=== PATIENT | female | born 1950 | race Caucasian/White ===

== ENCOUNTER → 2018-10-28 13:31 | Outpatient (CLI) | payer BC, SELFPAY ==
--- NOTE | 2018-10-28 | DI.CT.S_ITS ---
PROCEDURE: CT CHEST ABD PEL W CON INDICATIONS: Active smoker/routine screening/osteoporosis scree TECHNIQUE: After the administration of oral and intravenous contrast, 5 mm thick sections acquired from the lung apices to the symphysis. 5 mm coronal and sagittal reformats were performed, with additional 7 mm coronal MIP reformats through the lungs. For radiation dose reduction, the following was used: automated exposure control, adjustment of mA and/or kV according to patient size. COMPARISON: Former[facility], , THORACIC SPINE 2 VIEWS, 12/05/2011, 7:42. [facility], , CHEST 2 VIEW, 03/19/2017, 12:07. FINDINGS: Image quality: Excellent. CHEST: Lungs and pleura: No acute airspace opacities. No pleural effusions or pneumothorax. Central and peripheral airways appear patent and normal in caliber. Mediastinum: Heart size is normal. No pericardial effusion. No mediastinal or hilar adenopathy by size criteria. Thoracic aorta and central pulmonary arteries are normal in size. Esophagus is normal in caliber. No hiatal hernia. Chest wall: No axillary or supraclavicular adenopathy by size criteria. Thyroid gland appears normal where well seen. Note is made of a mid thoracic mild wedge compression fracture stable in appearance over time from plain film imaging that included the thoracic spine 12/05/11 ABDOMEN: Solid organs: Liver is normal in size and enhancement. Gallbladder appears normal. Biliary system is non dilated. Pancreas enhances normally. Spleen is normal in size and enhancement. No adrenal nodules. Kidneys demonstrate normal size and enhancement, without hydronephrosis. Peritoneum and bowel: Bowel loops demonstrate normal wall thickness and caliber. No free fluid or air. Nodes and vessels: No retroperitoneal or mesenteric adenopathy by size criteria. Aorta and inferior vena cava are normal in size. Miscellaneous: No ventral hernias. PELVIS: Genitourinary: Bladder wall thickness is normal. Miscellaneous: No inguinal hernias or adenopathy. Several surgical clips are noted at the right lower quadrant. Bones: No suspicious bony lesions. No vertebral body compression fractures. IMPRESSION: Through the lung parenchyma no mass lesion is seen. Note is made of a previously present midthoracic mild anterior wedge compression fracture also present in November 2011. Within the abdomen and pelvis no acute disease is found. Note is made of several clustered surgical clips in the right lower quadrant, possibly indicating prior appendectomy. Dictated by: Carlitos Rodriguez M.D. on 10/28/2018 at 15:57 Approved by: Carlitos Rodriguez M.D. on 10/28/2018 at 16:05
--- NOTE | 2018-10-28 | DI.MG.S_ITS ---
BILATERAL DIGITAL SCREENING MAMMOGRAM 3D/2D WITH CAD: 10/28/2018 CLINICAL: Routine screening. Family history of breast cancer. Comparison is made to exams dated: 03/25/2015 mammogram, 07/19/2013 mammogram, and 08/31/2011 mammogram - [facility]. There are scattered fibroglandular elements in both breasts. Current study was also evaluated with a Computer Aided Detection (CAD) system. No significant masses, calcifications, or other findings are seen in either breast. There has been no significant interval change. IMPRESSION: NEGATIVE There is no mammographic evidence of malignancy. A 1 year screening mammogram is recommended. This exam was interpreted at Station ID: [id number]. NOTE: For mammograms, a report in lay terms will be sent to the patient. Approximately 15% of breast malignancies will not be visualized mammographically. In the management of a palpable breast mass, a negative mammogram must not discourage biopsy of a clinically suspicious lesion. Electronically Signed By: Carolyn cardenas/rachel:10/28/2018 14:14:12 letter sent: Normal Exam ACR BI-RADS Category 1: Negative [id number]
[2018-10-28 14:00] LABS: BUN Creatinine Ratio 25.7 (6-22); Blood Urea Nitrogen 18 mg/dL (7-17); Calcium 9.7 mg/dL (8.4-10.2); Carbon Dioxide 25 mmol/L (22-32); Chloride 102 mmol/L (98-107); Estimated Glomerular Filt Rate > 60.0 mL/min (>60); Glucose 100 mg/dL (80-110); HEMOLYSIS < 15 (0-50); Potassium 3.8 mmol/L (3.4-5.1); Sodium 139 mmol/L (137-145)
== END ==
PROVIDERS: PCP Internal Medicine; Visit Provider Internal Medicine
DX: Z12.31 Encounter for screening mammogram for malignant neoplasm of breast (principal); Z13.820 Encounter for screening for osteoporosis; Z85.3 Personal history of malignant neoplasm of breast; M81.0 Age-related osteoporosis without current pathological fracture; Z78.0 Asymptomatic menopausal state; I10 Essential (primary) hypertension; E78.49 Other hyperlipidemia; F17.200 Nicotine dependence, unspecified, uncomplicated
CPT/HCPCS: 36415; 71260; 74177; 77063; 77067; 77080; 80048; 82565; 84520; Q9967

== ENCOUNTER → 2018-12-12 14:52 | Oncology outpatient (ONC) | payer BC, SELFPAY ==
[2018-12-12] MEDS: ZOLEDRONIC ACID 5 MG in SODIUM CHLORIDE 0.9% 100 ML 318.75 ML IV (15:19)
[2018-12-12 15:20] VITALS: BP 179/77; PULSE 70; RESP 16; TEMP 37.1; O2SAT 98
== END ==
LOC: ONC 14:55
PROVIDERS: PCP Internal Medicine; Visit Provider Internal Medicine
DX: M81.0 Age-related osteoporosis without current pathological fracture (principal)
CPT/HCPCS: 36000; 96365; J3489

== ENCOUNTER → 2019-06-07 08:04 | Outpatient (CLI) | payer BC, SELFPAY ==
[2019-06-07 08:49] LABS: Add Manual Diff / Slide Review NO; Basophils Absolute Auto 100 /uL (0-100); Basophils Percent Auto 0.9 % (0-2); Eosinophils Absolute Auto 100 /uL (0-450); Eosinophils Percent Auto 0.8 % (2-4); Hematocrit 45.6 % (36-46); Hemoglobin 16.2 g/dL (12.0-16.0); Lymphocytes Absolute Auto 2300 /uL (1100-4500); Lymphocytes Percent Auto 20.4 % (25-40); Mean Corpuscular HGB Conc 35.6 % (30-36); Mean Corpuscular Hemoglobin 34.5 PG (26-34); Mean Corpuscular Volume 96.8 fL (80-100); Monocytes Absolute Auto 800 /uL (0-900); Monocytes Percent Auto 6.8 % (3-14); Neutrophils Absolute Auto 8100 /uL (1500-7000); Neutrophils Percent Auto 71.1 % (50-75); Platelet Count 313 X10^3/uL (150-400); Red Blood Cell Count 4.71 X10^6/uL (4.0-5.2); Red Cell Distribution Width 12.7 % (11.6-14.8); White Blood Cell Count 11.5 X10^3/uL (4.5-11.0)
[2019-06-07 08:55] LABS: Prothrombin Time 11.3 SECONDS (10.1-12.7)
[2019-06-07 08:58] LABS: PTT Partial Thromboplastin Tim 38 SECONDS (26.4-36.2)
[2019-06-07 09:02] LABS: Alanine Aminotransferase 22 IU/L (<35); Albumin 4.9 g/dL (3.5-5.0); Albumin Globulin Ratio 1.3 (1.0-2.8); Alkaline Phosphatase 116 U/L (38-126); Aspartate Aminotransferase 33 IU/L (14-36); BUN Creatinine Ratio 19.4 (6-22); Blood Urea Nitrogen 12 mg/dL (7-17); C-Reactive Protein Quant 1.1 mg/dL (<1.0); Carbon Dioxide 25 mmol/L (22-32); Chloride 101 mmol/L (98-107); Estimated Glomerular Filt Rate > 60.0 mL/min (>60); Globulin 3.8 g/dL (1.7-4.1); Glucose 119 mg/dL (80-110); HEMOLYSIS < 15 (0-50); Lactate Dehydrogenase 423 U/L (313-618); Potassium 4.4 mmol/L (3.4-5.1); Sodium 138 mmol/L (137-145); Total Protein 8.7 g/dL (6.3-8.2)
[2019-06-07 09:10] LABS: Erythrocyte Sedimentation Rate 27 MM/HR (0-20)
[2019-06-07 09:30] LABS: Thyroid Stimulating Hormone 1.46 uIU/mL (0.47-4.68)
== END ==
PROVIDERS: PCP Internal Medicine; Referring Provider Internal Medicine; Visit Provider Internal Medicine
DX: I10 Essential (primary) hypertension (principal); L29.9 Pruritus, unspecified; T14.8XXA Other injury of unspecified body region, initial encounter
CPT/HCPCS: 36415; 80053; 83615; 84443; 85025; 85610; 85651; 85730; 86140

== ENCOUNTER → 2019-06-29 07:27 | Outpatient (CLI) | payer BC, SELFPAY ==
[2019-06-29 07:46] LABS: Bacteria Urine None Seen; RBC Urine None Seen (0-5/HPF); WBC Urine None Seen (0-5/HPF)
[2019-06-29 08:11] LABS: Appearance Urine UA CLEAR; Bilirubin Urine UA NEGATIVE (NEGATIVE); Color Urine UA YELLOW; Glucose Urine UA NEGATIVE (Negative); Ketones Urine UA NEGATIVE (NEGATIVE); Leukocyte Esterase Urine UA NEGATIVE (NEGATIVE); Nitrite Urine UA NEGATIVE (Negative); Occult Blood Urine UA TRACE-INTACT (Negative); Protein Urine UA NEGATIVE (Negative); Specific Gravity Urine UA <=1.005 (1.000-1.035); Urobilinogen Urine UA 0.2 E.U./dL (0.2)
[2019-06-29 08:20] LABS: Add Manual Diff / Slide Review NO; Basophils Absolute Auto 0 /uL (0-100); Basophils Percent Auto 0.5 % (0-2); Eosinophils Absolute Auto 100 /uL (0-450); Eosinophils Percent Auto 0.8 % (2-4); Hemoglobin 15.7 g/dL (12.0-16.0); Lymphocytes Absolute Auto 2700 /uL (1100-4500); Lymphocytes Percent Auto 30.2 % (25-40); Mean Corpuscular HGB Conc 35.7 % (30-36); Mean Corpuscular Hemoglobin 34.5 PG (26-34); Mean Corpuscular Volume 96.6 fL (80-100); Monocytes Absolute Auto 800 /uL (0-900); Neutrophils Absolute Auto 5200 /uL (1500-7000); Neutrophils Percent Auto 59.5 % (50-75); Platelet Count 309 X10^3/uL (150-400); Red Blood Cell Count 4.55 X10^6/uL (4.0-5.2); Red Cell Distribution Width 12.7 % (11.6-14.8); White Blood Cell Count 8.8 X10^3/uL (4.5-11.0)
[2019-06-29 08:21] LABS: Culture Indicated Urine Cult Not Indicated; Urine Comments Microscopic Normal; pH Urine UA 7.5 (4.5-8.0)
[2019-06-29 08:25] LABS: Prothrombin Time 11.6 SECONDS (10.1-12.7)
[2019-06-29 08:27] LABS: Hemoglobin A1C% w Est Avg Glu 5.4 % (4.0-6.0)
[2019-06-29 08:28] LABS: PTT Partial Thromboplastin Tim 37 SECONDS (26.4-36.2)
[2019-06-29 09:10] LABS: Fibrinogen 432 mg/dL (211-428)
[2019-06-29 16:37] LABS: HIV 1 & 2 Ab/Ag 4th Gen Combo NEGATIVE (NEGATIVE); Hep C Virus Ab w/Reflex Quant NEGATIVE s/c (NEGATIVE); Hepatitis B Surface Antigen NEGATIVE s/c (NEGATIVE)
[2019-06-29 23:56] LABS: Hepatitis B Core Antibody Negative (Negative)
[2019-06-30 03:08] LABS: Hepatitis B Surf Ab Qualitativ Non Reactive (.)
[2019-07-04 13:36] LABS: Immunoglobulin A, Serum 376 mg/dL (87-352); Immunoglobulin G,Serum 928 mg/dL (586-1602); Immunoglobulin M, Serum 252 mg/dL (26-217)
[2019-07-04 17:04] LABS: Albumin 3.7 g/dL (2.9-4.4); Alpha-1-Globulin 0.3 g/dL (0.0-0.4); Alpha-2-Globulin 0.9 g/dL (0.4-1.0); Gamma Globulin 1.2 g/dL (0.4-1.8); Globulin Total 3.6 g/dL (2.2-3.9); Protein, Total 7.3 g/dL (6.0-8.5)
== END ==
PROVIDERS: PCP Internal Medicine; Referring Provider Internal Medicine; Visit Provider Internal Medicine
DX: E88.09 Other disorders of plasma-protein metabolism, not elsewhere classified (principal); R79.1 Abnormal coagulation profile; D72.829 Elevated white blood cell count, unspecified
CPT/HCPCS: 36415; 81001; 82784; 83036; 84155; 84165; 85025; 85384; 85610; 85670; 85730; 86334; 86704; 86706; 86803; 87340; 87389

== ENCOUNTER → 2019-07-18 06:54 | Outpatient (CLI) | payer BC, SELFPAY ==
[2019-07-19 12:08] LABS: SARS CoV19 IgG Negative (Negative)
== END ==
PROVIDERS: PCP Internal Medicine; Referring Provider Internal Medicine; Visit Provider Internal Medicine
DX: Z71.89 Other specified counseling (principal)
CPT/HCPCS: 36415; 86769

== ENCOUNTER → 2019-09-14 16:18 | Outpatient (CLI) | payer BC, SELFPAY ==
--- NOTE | 2019-09-14 16:20 | DI.RAD.S_ITS ---
PROCEDURE: XR CHEST 2V INDICATIONS: cough TECHNIQUE: 2 views of the chest were acquired. COMPARISON: [facility], CT, CT CHEST ABD PEL W CON, 10/28/2018, 15:14. [facility], CR, CHEST 2 VIEW, 03/19/2017, 12:07. FINDINGS: Surgical changes and devices: None. Lungs and pleura: Lungs are abnormal within interstitial prominence and also with mild asymmetric elevation of the left hemidiaphragm not previously present on comparison study from March 2017. Note is made of prominent mediastinal and left hilar adenopathy causing presence of a lobulated masslike structure superimposed on the left mediastinum, measuring up to 6.7 cm in diameter. No right-sided adenopathy is seen.. No pleural effusions or pneumothorax. Mediastinum: Mediastinal contours are normal. Heart size is normal. Bones and chest wall: No suspicious bony abnormalities. Soft tissues appear unremarkable. IMPRESSION: Malignant-appearing adenopathy and possible superimposed lung mass at the left hilum, measuring up to 6.7 cm, with a new finding of associated volume reduction in the left hemithorax. This may indicate impingement on individual bronchi such as leading to the left lower lobe. Contrast-enhanced CT scanning is recommended. This information was personally conveyed to the ordering healthcare provider. Dictated by: Carlitos Rodriguez M.D. on 09/14/2019 at 16:51 Approved by: Carlitos Rodriguez M.D. on 09/14/2019 at 16:56
== END ==
PROVIDERS: PCP Internal Medicine; Referring Provider Physician Assistant; Visit Provider Physician Assistant
DX: R05 Cough (principal); R91.8 Other nonspecific abnormal finding of lung field
CPT/HCPCS: 71046

== ENCOUNTER → 2019-09-18 12:24 | Outpatient (CLI) | payer BC, SELFPAY ==
[2019-09-18 13:30] LABS: BUN Creatinine Ratio 16.7 (6-22); Blood Urea Nitrogen 11 mg/dL (7-17); Estimated Glomerular Filt Rate > 60.0 mL/min (>60)
--- NOTE | 2019-09-18 14:03 | DI.CT.S_ITS ---
PROCEDURE: CT CHEST W CON INDICATIONS: MASS OF LUNG TECHNIQUE: After the administration of intravenous contrast, 5 mm thick sections acquired from the pulmonary apices to the posterior costophrenic angles. 1 mm axial lung, 5 mm thick coronal and sagittal reformats and 7 mm axial MIP were acquired. For radiation dose reduction, the following was used: automated exposure control, adjustment of mA and/or kV according to patient size. COMPARISON: [facility], CR, CHEST 2 VIEW, 03/19/2017, 12:07. [facility], CT, CT CHEST ABD PEL W CON, 10/28/2018, 15:14. [facility], CR, XR CHEST 2V, 09/14/2019, 16:18. FINDINGS: Image quality: Excellent. Lungs and pleura: No acute air space opacities. No pleural effusions or pneumothorax. Central and peripheral airways are patent and normal in caliber. Mediastinum: Heart size is normal. No pericardial effusion. There is confluent mediastinal and left hilar adenopathy by size criteria with an overall mass dimension compressing the vascular structures from a posterior approach of 4.0 cm AP, 8.2 cm transverse and up to 6.6 cm craniocaudad. This compresses and displaces the left-sided pulmonary arteries and several of the left-sided hilar bronchi in that area. This area was previously normal in October last year. At the medial left lower lobe separate from the mass there is a posterior ovoid lung mass measuring up to 2.0 cm AP, 1.3 cm transverse, and up to 1.8 cm craniocaudad. Mild atelectasis or retention of pulmonary secretions is present below that area. Thoracic aorta and central pulmonary arteries are normal in size. Esophagus is normal in caliber but cannot be clearly discriminated from the border of the mass at the mid esophagus level. No hiatal hernia. Bones and chest wall: No suspicious bony lesions. No vertebral body compression fractures. No axillary or supraclavicular adenopathy by size criteria. Thyroid gland contains a 1.2 cm rounded thyroid nodule at the right thyroid lobe anteriorly, and the thyroid lobe is better visualized on the current CT than on the prior study from October of last year. Abdomen: Visualized upper abdominal solid organs appear normal. Upper abdominal bowel loops are normal in caliber. IMPRESSION: Interval development of a ovoid mass lesion in the posterior medial left lower lobe below the left hilum level, measuring approximately 2.0 x 1.3 x 1.8 cm with associated confluent left hilar and mediastinal adenopathy forming a mass measuring up to 4.0 x 8.2 x 6.6 cm more superiorly. This may reflect a combination of primary bronchogenic carcinoma and jill metastatic disease involving the lymphatic drainage pathway from the smaller mass. No distant metastatic disease is found. Bronchi within the area of the left hilum are compressed and displaced and access for bronchoscopic biopsy may be available in that area. Dictated by: Carlitos Rodriguez M.D. on 09/18/2019 at 14:52 Approved by: Carlitos Rodriguez M.D. on 09/18/2019 at 15:03
== END ==
PROVIDERS: PCP Internal Medicine; Referring Provider Internal Medicine; Visit Provider Internal Medicine
DX: R91.8 Other nonspecific abnormal finding of lung field (principal)
CPT/HCPCS: 36415; 71260; 82565; 84520; Q9967

== ENCOUNTER → 2019-09-26 08:55 | Outpatient (CLI) | payer BC, SELFPAY ==
[2019-09-27 09:17] LABS: COVID19 Sendout Not Detected (Not Detect)
== END ==
PROVIDERS: PCP Internal Medicine; Visit Provider Physician Assistant
DX: Z11.59 Encounter for screening for other viral diseases (principal)
CPT/HCPCS: 87635

== ENCOUNTER → 2019-10-11 09:36 | Outpatient (CLI) | payer BC, SELFPAY ==
--- NOTE | 2019-10-11 09:39 | DI.MRI.S_ITS ---
PROCEDURE: MR HEAD/BRAIN WO/W CON INDICATIONS: Malignant neoplasm of unspecified part of unspecif TECHNIQUE: Noncontrast axial T1 spin echo, axial T2 fast spin echo, sagittal and axial FLAIR, coronal T2 fast spin echo, axial gradient echo, axial diffusion and ADC through the brain. After the administration of contrast, axial and coronal T1 spin echo with fat saturation through the brain. COMPARISON: None. FINDINGS: Image quality: Excellent. CSF spaces: Basal cisterns are patent. No extra-axial fluid collections. Ventricles are normal in size and shape. Brain: No midline shift. No intracranial bleeds or masses. No abnormal intracranial enhancement. There is cerebral volume loss for age. There is periventricular white matter chronic small vessel ischemic change. The brainstem appears normal. Diffusion-weighted images demonstrate no acute ischemic insults. No chronic ischemic insults. Normal intravascular flow voids are present. Skull and face: Calvarial marrow is normal in signal. Orbits appear normal. Sinuses: Sinuses and mastoids appear clear. IMPRESSION: 1. Volume loss and small vessel ischemic disease. 2. No evidence of metastatic disease. 3. No acute process. No recent infarct. Dictated by: You Grimaldo M.D. on 10/11/2019 at 10:18 Approved by: You Grimaldo M.D. on 10/11/2019 at 10:20
== END ==
PROVIDERS: PCP Internal Medicine; Referring Provider Internal Medicine Critical Care Medicine; Visit Provider Internal Medicine Critical Care Medicine
DX: C34.90 Malignant neoplasm of unspecified part of unspecified bronchus or lung (principal)
CPT/HCPCS: 70553

== ENCOUNTER → 2019-10-18 14:06 | Outpatient (CLI) | payer BC, SELFPAY ==
--- NOTE | 2019-10-18 | DI.NM.S_ITS ---
PROCEDURE: NM PET CT FUSION LIMITED AREA RADIOPHARMACEUTICAL: 11.62 mCi F-18 fluorodeoxyglucose IV. INDICATIONS: STAGING LUNG CANCER TECHNIQUE: After intravenous administration of F-18 fluoro-deoxyglucose (FDG), noncontrast CT images were obtained for attenuation correction and anatomic localization. A series of overlapping emission PET images was then obtained. The patient's pretest fasting blood glucose level as measured by glucometer was 114 mg/dl. The area imaged spanned from the skull base to the upper thighs. COMPARISON: [facility], MR, MR HEAD/BRAIN WO/W CON, 10/11/2019, 9:46. [facility], CT, CT CHEST ABD PEL W CON, 10/28/2018, 15:14. [facility], CR, XR CHEST 2V, 09/14/2019, 16:18. [facility], CT, CT CHEST W CON, 09/18/2019, 13:57. FINDINGS: Head and neck: No soft tissue masses in the neck. No enlarged cervical or supraclavicular lymph nodes; no abnormal jill tracer uptake. Salivary and thyroid glands appear normal. Sinuses and mastoids are clear. Thorax: There is a 1.7 cm mass in the left lower lobe demonstrating increased FDG uptake (maximum SUV 9.1). 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 There is hypermetabolic left hilar and mediastinal lymph nodes consistent with jill metastases. For example, a large left mass measures 3.1 x 4.9 cm, demonstrating intense FDG activity (maximum SUV 18.7). A large subcarinal lymph node measures 3.8 x 4.5 cm, demonstrating maximum SUV 14.4. There is narrowing of the left lower lobe and upper lobe bronchi by large central jill mass. Irregular density in the left lung base is most likely atelectasis. No pleural effusions. Heart size is normal. No pericardial effusion. Abdomen and pelvis: No enlarged retroperitoneal or mesenteric lymph nodes. No abnormal jill tracer uptake. There is normal heterogeneous hepatic tracer uptake. Liver is normal in size, without focal masses. The spleen is normal in size. Gallbladder is normal. Pancreas is normal in morphology. Mild bilateral metric adrenal thickening and nodularity. Kidneys are normal in size, without hydronephrosis or nephrolithiasis. Small and large intestines are normal in caliber. There are scattered colonic diverticula. No findings to suggest acute diverticulitis. Aorta and inferior vena cava are normal in size. Moderate atherosclerosis. No free fluid or air. No pelvic or inguinal adenopathy. Bladder wall thickness is normal. Bones: No abnormal osseous tracer uptake. No lytic or blastic bony lesions. IMPRESSION: 1. A hypermetabolic 1.7 cm mass in the left lower lobe consistent with primary lung cancer. 2. Large left hilar and mediastinal lymphadenopathy consistent with jill metastasis. 3. 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 4. Dictated by: Barak Bower M.D. on 10/19/2019 at 9:06 Approved by: Barak Bower M.D. on 10/19/2019 at 9:52
== END ==
PROVIDERS: PCP Internal Medicine; Visit Provider Internal Medicine
DX: C34.90 Malignant neoplasm of unspecified part of unspecified bronchus or lung (principal); R59.0 Localized enlarged lymph nodes